=== PATIENT | female | born 1940 | race Caucasian/White ===

== ENCOUNTER 2016-06-04 17:51 | Emergency (ER) | payer OTHER ==
[2016-06-04 19:22] LABS: % IMMATURE GRANULYOCYTES 0.2 % (0.0-1.1); ABSOLUTE IMMATURE GRANULOCYTES 0.04 10^3/uL (0.00-0.10); ABSOLUTE NRBC COUNT 0.03 10^3/uL (0-0.01); ADD DIFF? NO; ADD MORPH? NO; ADD SCAN? YES; ATYPICAL LYMPHOCYTE FLAG 0 (0-99); FRAGMENT RBC FLAG 0 (0-99); HEMATOCRIT 44.4 % (38.0-47.0); LEFT SHIFT FLG 0 (0-99); LIPEMIA HEMOLYSIS FLAG 90 (0-99); MEAN CELL HEMOGLOBIN 31.7 pg (27.9-34.1); MEAN CELL HEMOGLOBIN CONCENTR. 33.8 g/dL (32.4-36.7); MEAN CELL VOLUME 93.9 fL (81.5-99.8); MEAN PLATELET VOLUME 10.1 fL (8.7-11.7); NRBC-AUTO% 0.1 % (0.0-0.2); PLATELET CLUMPS FLAG 10 (0-99); PLATELET COUNT 141 10^3/uL (150-400); RED BLOOD CELL COUNT 4.73 10^6/uL (4.18-5.33); RED CELL DISTRIBUTION WIDTH 12.2 % (11.5-15.2)
[2016-06-04 19:28] LABS: ANION GAP 10 mEq/L (8-16); CALCIUM 9.3 mg/dL (8.5-10.4); CARBON DIOXIDE 29 mEq/l (22-31); CHLORIDE 103 mEq/L (97-110); CREATININE 0.7 mg/dL (0.6-1.0); ETHANOL SERUM < 10 mg/dL (0-10); GLOMERULAR FILTRATION RATE > 60; GLUCOSE 92 mg/dL (70-100); POTASSIUM 3.6 mEq/L (3.5-5.2); SODIUM 142 mEq/L (134-144)
[2016-06-04 19:49] LABS: SCAN NEGATIVE
--- NOTE | 2016-06-04 21:56 | EDPHY ---
H & P Stated Complaint: Psych eval HPI/ROS: Chief complaint: Brought to the hospital by police for a psychiatric evaluation History of present illness: This is a 75-year-old female who presents to the emergency department with police for a psychiatric evaluation. Apparently patient was at home today and got into a fight with her . She is concerned that her is having an affair. This is apparently an ongoing issue of tension between them. On my evaluation patient states she is feeling depressed and rather despondent about the situation. However, she denies suicidal ideation. She denies homicidal ideation. No current illness or injury. Review of systems: A 10 point review of systems was obtained and other than described above was negative - Personal History Current Tetanus/Diphtheria Vaccine: Yes Current Tetanus Diphtheria and Acellular Pertussis (TDAP): Yes - Medical/Surgical History Hx Asthma: No Hx Chronic Respiratory Disease: No Hx Diabetes: No Hx Cardiac Disease: No Hx Renal Disease: No Hx Cirrhosis: No Hx Alcoholism: No Hx HIV/AIDS: No Hx Splenectomy or Spleen Trauma: No Other PMH: LEUKEMIA, Alzheimers - Social History Smoking Status: Never smoked - Physical Exam Exam: General Appearance: Alert, nontoxic. Eyes: Pupils equal and round no pallor or injection. ENT, Mouth: Mucous membranes moist. Respiratory: There are no retractions, lungs are clear to auscultation. Cardiovascular: Regular rate and rhythm. Gastrointestinal: Abdomen is soft and non tender, no masses, bowel sounds normal. Neurological: Alert and oriented. Strength and sensation intact and symmetrical. Skin: Warm and dry, no rashes. Musculoskeletal: Neck is supple non tender. Extremities are symmetrical, full range of motion. Psychiatric: Patient is oriented X 3, there is no agitation. Constitutional: Initial Vital Signs Temperature (C) 36.5 C 06/04/16 17:57 Heart Rate 78 06/04/16 17:57 Respiratory Rate 18 06/04/16 17:57 Blood Pressure 146/88 H 06/04/16 17:57 O2 Sat (%) 97 06/04/16 17:57 O2 Delivery Mode Room Air Allergies/Adverse Reactions: acetaminophen [From Percocet] Allergy (Unknown, Verified 01/01/11 14:42) erythromycin base [Erythromycin Base] Allergy (Unknown, Verified 01/01/11 14:42) oxycodone HCl [From Percocet] Allergy (Unknown, Verified 01/01/11 14:42) Home Medications: Medication Instructions Recorded Rosuvastatin Calcium [Crestor] 40 mg PO HS 01/01/11 Aricept 06/04/16 Citalopram 06/04/16 Medical Decision Making ED Course/Re-evaluation: Patient discussed with my secondary supervising physician Dr. Giovani Helms. Patient is brought to the emergency department by police after getting into a fight with her . Patient is feeling very depressed. Patient was medically evaluated. I have a suspicion for a urinary tract infection. She does have a significant leukocytosis but appears to have a known history of leukemia. No other significant findings noted. I have requested a psychiatric evaluation but they have declined as they feel patient does not meet requirements for a emergent psychiatric evaluation as she is not suicidal or homicidal or gravely disabled. On re-evaluation patient is feeling well. She has calmed down and not upset. Her daughter is at bedside. They are comfortable going home. Patient will be discharged home in the care of her daughter will stay [facility] her [facility]. I have asked that they follow up with her primary care doctor on Tuesday for continued evaluation and care. They are comfortable with this plan. They are discharged. Patient did not receive a prescription for an antibiotic for a urinary tract infection at discharge. The patient was called and a prescription was called into the pharmacy by the charge nurse. - Data Points Laboratory Results: Laboratory Results 06/04/16 18:15 06/04/16 18:15 Microbiology Results: MICROBIOLOGY 06/04/16 23:05 Urine,Clean Catch Urine Culture - Preliminary Escherichia Coli Departure - Departure Disposition: Home, Routine, Self-Care Clinical Impression: Dementia Qualifiers: Qualifier Code: (G30.8) Other Alzheimer's disease Condition: Good Instructions: Dementia (ED), Depression (ED) Additional Instructions: Please follow up with your primary care doctor on Tuesday for recheck without fail If symptoms worsen or new symptoms develop return to the emergency department for recheck Referrals: Edwina Santiago MD [Primary Care Provider] - As per Instructions
[2016-06-04 22:48] VITALS: BP 113/70; PULSE 72; RESP 16; TEMP 98.2; O2SAT 96
[2016-06-04 22:58] LABS: COLOR YELLOW; LEUKOCYTE ESTERASE,URINE 2+ (NEGATIVE); NITRITE,URINE NEGATIVE (NEGATIVE)
[2016-06-04 23:05] LABS: WBC,URINE 15-25 /hpf (0-3)
== END 2016-06-04 22:48 | disposition home or self-care (01) ==
DX: G30.8 Other Alzheimer's disease (principal)
CPT/HCPCS: G0477; G0480

== ENCOUNTER 2016-12-07 12:09 | Emergency (ER) | payer OTHER ==
[2016-12-07 13:20] LABS: % IMMATURE GRANULYOCYTES 0.2 % (0.0-1.1); ABSOLUTE IMMATURE GRANULOCYTES 0.04 10^3/uL (0.00-0.10); ADD DIFF? NO; ADD MORPH? NO; ADD SCAN? YES; ATYPICAL LYMPHOCYTE FLAG 0 (0-99); FRAGMENT RBC FLAG 0 (0-99); HEMATOCRIT 44.3 % (38.0-47.0); HEMOGLOBIN 15.3 g/dL (12.6-16.3); LEFT SHIFT FLG 0 (0-99); LIPEMIA HEMOLYSIS FLAG 90 (0-99); MEAN CELL HEMOGLOBIN 31.9 pg (27.9-34.1); MEAN CELL HEMOGLOBIN CONCENTR. 34.5 g/dL (32.4-36.7); MEAN CELL VOLUME 92.3 fL (81.5-99.8); MEAN PLATELET VOLUME 10.1 fL (8.7-11.7); PLATELET CLUMPS FLAG 20 (0-99); PLATELET COUNT 154 10^3/uL (150-400); RED CELL DISTRIBUTION WIDTH 12.6 % (11.5-15.2)
[2016-12-07 13:32] LABS: ANION GAP 14 mEq/L (8-16); CALCIUM 9.9 mg/dL (8.5-10.4); CARBON DIOXIDE 22 mEq/l (22-31); CHLORIDE 109 mEq/L (97-110); CREATININE 0.8 mg/dL (0.6-1.0); ETHANOL SERUM < 10 mg/dL (0-10); GLOMERULAR FILTRATION RATE > 60; GLUCOSE 115 mg/dL (70-100); SODIUM 145 mEq/L (134-144)
[2016-12-07 14:11] LABS: SCAN POSITIVE
[2016-12-07 14:18] LABS: PLATELET ESTIMATE DECREASED (ADEQ)
[2016-12-07 16:32] LABS: COLOR YELLOW; LEUKOCYTE ESTERASE,URINE NEGATIVE (NEGATIVE); MUCUS TRACE /lpf (NONE-1+); NITRITE,URINE NEGATIVE (NEGATIVE)
--- NOTE | 2016-12-07 16:59 | EDPHY ---
H & P Time Seen by Provider: 12/07/16 12:42 HPI/ROS: CHIEF COMPLAINT: M1 hold HISTORY OF PRESENT ILLNESS: 75-year-old female presents to the emergency department on M1 hold. The patient states that she got into an argument with her and was accusing him of having an affair since last January. She apparently threatened to kill him and 1 of her neighbors possibly called the police. The patient states she is not suicidal. She does not feel homicidal. She denies any physical complaints at this time. She states that she was here in July with very similar symptoms. She does have a history of dementia and is prescribed Aricept and they also were to start a new psychiatric medication on the patient yesterday although she was very apprehensive about starting this medication. REVIEW OF SYSTEMS: Constitutional: No fever, no chills. Eyes: No double or blurry vision. ENT: No sore throat. Respiratory: No cough, no shortness of breath. Cardiac: No chest pain. Gastrointestinal: No abdominal pain, vomiting or diarrhea. Genitourinary: No dysuria. Musculoskeletal: No neck or back pain. Skin: No rashes. Neurological: No headache. Past Medical/Surgical History: Alzheimer's dementia, hyperlipidemia, chronic lymphocytic leukemia Social History: Smoking Status: Never smoked Physical Exam: General Appearance: Alert, no distress. Afebrile. No apparent distress. Friend at bedside. Eyes: Pupils equal and round. Extraocular motions are all intact. ENT: Mouth: Mucous membranes moist. Respiratory: No wheezing, rhonchi, or rales, lungs are clear to auscultation. Cardiovascular: Regular rate and rhythm. Gastrointestinal: Abdomen is soft and nontender, no masses, no rebound or guarding, bowel sounds normal. Neurological: Alert and oriented x 3, cranial nerves II through XII grossly intact Skin: Warm and dry, no rashes. Musculoskeletal: Nontender to palpate along the cervical, thoracic or lumbar spine. Neck is supple. Extremities: Full range of motion and no peripheral edema. Psychiatric: Patient is oriented X 3, there is no agitation. Constitutional: Initial Vital Signs Temperature (C) 37 C 12/07/16 12:29 Heart Rate 87 12/07/16 12:29 Respiratory Rate 17 12/07/16 12:29 Blood Pressure 112/59 L 12/07/16 12:29 O2 Sat (%) 95 12/07/16 12:29 O2 Delivery Mode Room Air Allergies/Adverse Reactions: acetaminophen [From Percocet] Allergy (Unknown, Verified 12/07/16 12:29) erythromycin base [Erythromycin Base] Allergy (Unknown, Verified 12/07/16 12:29) oxycodone HCl [From Percocet] Allergy (Unknown, Verified 12/07/16 12:29) Home Medications: Medication Instructions Recorded Rosuvastatin Calcium [Crestor] 40 mg PO HS 01/01/11 Aricept 06/04/16 Citalopram 06/04/16 Hydrocodone/APAP 5/325 12/07/16 Medical Decision Making ED Course/Re-evaluation: The patient has been medically cleared and is awaiting mental health evaluation. The spent a great deal of time talking with the nurse case management as well as the automation clerk. He had also called [facility] for possible admission to geriatric psychiatric unit. Differential Diagnosis: Altered mental status including but not limited to dementia, hypoglycemia, infectious process, electrolyte abnormality, head injury and intoxicants. Care Turn Over: Care will be turned over to Dr. Zaid Correa at 5:00 p.m. for disposition and plan. - Data Points Laboratory Results: Laboratory Results 12/07/16 12:44 12/07/16 12:44 12/07/16 12/07/16 12/07/16 16:00 12:44 12:44 WBC 22.13 10^3/uL H 10^3/uL (3.80-9.50) RBC 4.80 10^6/uL 10^6/uL (4.18-5.33) Hgb 15.3 g/dL g/dL (12.6-16.3) Hct 44.3 % % (38.0-47.0) MCV 92.3 fL fL (81.5-99.8) MCH 31.9 pg pg (27.9-34.1) MCHC 34.5 g/dL g/dL (32.4-36.7) RDW 12.6 % % (11.5-15.2) Plt Count 154 10^3/uL 10^3/uL (150-400) MPV 10.1 fL fL (8.7-11.7) Neut % (Auto) 19.4 % L % (39.3-74.2) Lymph % (Auto) 76.8 % H % (15.0-45.0) Woodward % (Auto) 2.6 % L % (4.5-13.0) Eos % (Auto) 0.7 % % (0.6-7.6) Baso % (Auto) 0.3 % % (0.3-1.7) Nucleat RBC Rel Count 0.0 % % (0.0-0.2) Absolute Neuts (auto) 4.30 10^3/uL 10^3/uL (1.70-6.50) Absolute Lymphs (auto) 16.99 10^3/uL H 10^3/uL (1.00-3.00) Absolute Monos (auto) 0.58 10^3/uL 10^3/uL (0.30-0.80) Absolute Eos (auto) 0.16 10^3/uL 10^3/uL (0.03-0.40) Absolute Basos (auto) 0.06 10^3/uL 10^3/uL (0.02-0.10) Absolute Nucleated RBC 0.00 10^3/uL 10^3/uL (0-0.01) Immature Gran % 0.2 % % (0.0-1.1) Seg Neutrophils % 15 % % Lymphocytes % 82 % % Monocytes % 1 % % Eosinophils % 2 % % Immature Gran # 0.04 10^3/uL 10^3/uL (0.00-0.10) Absolute Seg Neuts 3.32 10^/uL 10^/uL (1.70-6.50) Absolute Lymphocytes 18.15 10^3/uL H 10^3/uL (1.00-3.00) Absolute Monocytes 0.22 10^3/uL L 10^3/uL (0.30-0.80) Absolute Eosinophils 0.44 10^3/uL H 10^3/uL (0.03-0.40) Atypical Lymphocytes 1+ H Platelet Estimate DECREASED L (ADEQ) Smear Review By Pending Sodium 145 mEq/L H mEq/L (134-144) Potassium 4.0 mEq/L mEq/L (3.5-5.2) Chloride 109 mEq/L mEq/L (97-110) Carbon Dioxide 22 mEq/l mEq/l (22-31) Anion Gap 14 mEq/L mEq/L (8-16) BUN 18 mg/dL mg/dL (7-23) Creatinine 0.8 mg/dL mg/dL (0.6-1.0) Estimated GFR > 60 Glucose 115 mg/dL H mg/dL (70-100) Calcium 9.9 mg/dL mg/dL (8.5-10.4) TSH 1.490 uIU/mL uIU/mL (0.465-4.680) Urine Color YELLOW Urine Appearance HAZY Urine pH 6.0 (5.0-7.5) Ur Specific Hurley 1.016 (1.002-1.030) Urine Protein NEGATIVE (NEGATIVE) Urine Ketones NEGATIVE (NEGATIVE) Urine Blood NEGATIVE (NEGATIVE) Urine Nitrate NEGATIVE (NEGATIVE) Urine Bilirubin NEGATIVE (NEGATIVE) Urine Urobilinogen 2.0 EU H EU (0.2-1.0) Ur Leukocyte Esterase NEGATIVE (NEGATIVE) Urine RBC 1-3 /hpf /hpf (0-3) Urine WBC 1-3 /hpf /hpf (0-3) Ur Epithelial Cells TRACE /lpf /lpf (NONE-1+) Urine Mucus TRACE /lpf /lpf (NONE-1+) Urine Glucose NEGATIVE (NEGATIVE) Urine Opiates Screen NON-NEGATIVE H (NEGATIVE) Urine Barbiturates NEGATIVE (NEGATIVE) Ur Phencyclidine Scrn NEGATIVE (NEGATIVE) Ur Amphetamine Screen NEGATIVE (NEGATIVE) U Benzodiazepines Scrn NEGATIVE (NEGATIVE) Urine Cocaine Screen NEGATIVE (NEGATIVE) U Marijuana (THC) Screen NEGATIVE (NEGATIVE) Ethyl Alcohol < 10 mg/dL mg/dL (0-10) Departure - Departure Disposition: Other Psych, Not Honor Clinical Impression: Homicidal ideation Alzheimer's dementia Qualifiers: Alzheimer's disease onset: unspecified onset Dementia behavioral disturbance: with behavioral disturbance Qualified Code(s): G30.8 - Other Alzheimer's disease ; F02.81 - Dementia in other diseases classified elsewhere with behavioral disturbance Condition: Good Referrals: Patient,NotPresent [Primary Care Provider] - As per Instructions
[2016-12-07 20:09] VITALS: RESP 16; TEMP 98.1
[2016-12-07] MEDS ORDERED: IBUPROFEN 200 MG TAB PO ONE (22:29)
[2016-12-07] MEDS ORDERED: LORazepam 1 MG TAB PO ONE (23:00)
[2016-12-07] MEDS ORDERED: OLANZapine 10 MG/2 ML VIAL IM ONE ×2 (23:00→23:42)
[2016-12-07] MEDS ORDERED: LORazepam 1 MG TAB ONE (23:29)
[2016-12-08 03:06] VITALS: BP 107/62; PULSE 63; O2SAT 92
== END 2016-12-08 03:30 ==
DX: G30.8 Other Alzheimer's disease (principal); F02.81 Dementia in other diseases classified elsewhere, unspecified severity, with behavioral disturbance; R45.850 Homicidal ideations
CPT/HCPCS: 80305; G0480

== ENCOUNTER 2017-08-17 20:47 | Emergency (ER) | payer OTHER ==
[2017-08-17] MEDS ORDERED: LET GEL TOPICAL 1 EA SYR TP ONE ×2 (21:25→21:26)
--- NOTE | 2017-08-17 21:28 | EDPHY ---
H & P Stated Complaint: FALL, LACERATION TO LEFT FOREHEAD NO LOC Time Seen by Provider: 08/17/17 21:19 HPI/ROS: HPI CHIEF COMPLAINT: Left forehead laceration. HISTORY OF PRESENT ILLNESS: Patient very pleasant 76-year-old female, denies having any headache nausea vomiting. She bent over to place with a cat and hit her head on the window sill. She sustained a left-sided forehead vertical laceration 4 cm in vertical orientation. She denies headache. Denies nausea denies vomiting. Denies dizziness. Denies focal weakness numbness or tingling. Denies chest pain or shortness of breath. She did not pass out. Tetanus shot is up-to-date. Past Medical History: Depression, mood disorder, dementia Past Surgical History: Denies recent surgery Social History: Denies drugs alcohol tobacco. Resides locally. Family History: Noncontributory ROS REVIEW OF SYSTEMS: A comprehensive 10 point review of systems is otherwise negative aside from elements mentioned in the history of present illness. Exam Constitutional appears well nontoxic no acute distress, triage nursing summary reviewed, vital signs reviewed, awake/alert. Eyes normal conjunctivae and sclera, EOMI, PERRLA. HENT head/neck: Left forehead laceration: 4 cm vertically oriented left forehead. No foreign bodies visualized. Otherwise head neck exam is atraumatic. moist mucus membranes, no epistaxis, neck supple/ no meningismus, no raccoon eyes. Respiratory clear to auscultation bilaterally, normal breath sounds, no respiratory distress, no wheezing. Cardiovascular rate normal, regular rhythm, no murmur, no edema, distal pulses normal. Gastrointestinal soft, non-tender, no rebound, no guarding, normal bowel sounds, no distension, no pulsatile mass. Genitourinary no CVA tenderness. Musculoskeletal no midline vertebral tenderness, full range of motion, no calf swelling, no tenderness of extremities, no meningismus, good pulses, neurovascularly intact. Skin pink, warm, & dry, no rash, skin atraumatic. Neurologic awake, alert and oriented x 3, AAOx3, moves all 4 extremities equally, motor intact, sensory intact, CN II-XII intact, normal cerebellar, normal vision, normal speech. Psychiatric normal mood/affect. Heme/Lymph/Immune no lymphadenopathy. Differential Diagnosis: Includes but is not limited to in a particular order left forehead laceration, left forehead hematoma, doubt intracranial bleed, doubt skull fracture, doubt subdural or epidural given no headache, not vomiting acting appropriately. Medical Decision Making: Plan for this patient will copiously irrigating clean her wound. Repair her laceration. I have discussed with her as well as her bedside return precautions about head injury. If she develops headache, vomiting she needs return emergency room. She declined CT imaging at this time. Re-evaluation: Laceration Repair Procedure: Verbal Consent was obtained, Under sterile conditions, The patient had lidocaine with epinephrine used approximately 4ccs to local anesthetize the Left Forehead 4CM Laceration. The wound was copiously irrigated with sterile fluid, the wound was explored for foreign bodies there were none visualized, the wound was explored with a sterile glove to the base. There are no deep structures involved, including no arterial injury. TWO 6.O PROLENE interrupted Sutures were placed in this patient's laceration. She had good close approximation of the wound edges. She Tolerated this well. 2200: Patient understands have sutures removed in 7 days. Return precautions discussed with her. She understands return emergency if develops headache, vomiting questions concerns about a laceration. at bedside updated. Source: Patient - Personal History Current Tetanus/Diphtheria Vaccine: Yes Current Tetanus Diphtheria and Acellular Pertussis (TDAP): Yes - Medical/Surgical History Hx Asthma: No Hx Chronic Respiratory Disease: No Hx Diabetes: No Hx Cardiac Disease: No Hx Renal Disease: No Hx Cirrhosis: No Hx Alcoholism: No Hx HIV/AIDS: No Hx Splenectomy or Spleen Trauma: No Other PMH: cchronic lymphocytic LEUKEMIA, Alzheimers, hyperlipidemia - Social History Smoking Status: Never smoked Constitutional: Initial Vital Signs Temperature (C) 36.5 C 08/17/17 20:48 Heart Rate 63 08/17/17 20:48 Respiratory Rate 18 08/17/17 20:48 Blood Pressure 122/64 H 08/17/17 20:48 O2 Sat (%) 96 08/17/17 20:48 O2 Delivery Mode Room Air Allergies/Adverse Reactions: acetaminophen [From Percocet] Allergy (Unknown, Verified 08/17/17 20:51) erythromycin base [Erythromycin Base] Allergy (Unknown, Verified 08/17/17 20:51) oxycodone HCl [From Percocet] Allergy (Unknown, Verified 08/17/17 20:51) Home Medications: Medication Instructions Recorded Rosuvastatin Calcium [Crestor] 40 mg PO HS 01/01/11 Aricept 06/04/16 Citalopram 06/04/16 ARIPiprazole [Abilify 2 mg (*)] 2.5 mg PO DAILY 08/17/17 B-9 08/17/17 QUEtiapine FUMARATE [Seroquel 25 25 mg PO DAILY 08/17/17 mg (*)] Medical Decision Making - Data Points Medications Given: Discontinued Medications Tetracaine/Epinephrine/Lidocaine (Let Gel Topical) 1 ea TP EDNOW ONE Stop: 08/17/17 21:26 Last Admin: 08/17/17 21:27 Dose: 1 ea Departure - Departure Disposition: Home, Routine, Self-Care Clinical Impression: Laceration Forehead laceration Qualifiers: Encounter type: initial encounter Qualified Code(s): S01.81XA - Laceration without foreign body of other part of head, initial encounter Condition: Good Instructions: Laceration (ED), Care For Your Stitches (ED) Additional Instructions: 1. You need to have your sutures removed in 7 days. 2. Return emergency room if you have any further questions concerns or worsening symptoms includes headache, vomiting or not acting correctly. Referrals: Cindy Holland MD [Primary Care Provider] - As per Instructions
[2017-08-24 13:03] VITALS: BP 124/67; PULSE 81; RESP 18; TEMP 98.2; O2SAT 93
== END 2017-08-17 22:15 | disposition home or self-care (01) ==
PROC: 0HQ1XZZ Repair Face Skin, External Approach (ICD-10-PCS; principal; 2017-08-17)
DX: S01.81XA Laceration without foreign body of other part of head, initial encounter (principal); G30.9 Alzheimer's disease, unspecified; W18.09XA Striking against other object with subsequent fall, initial encounter

== ENCOUNTER → 2017-10-25 | Outpatient (CLI) | payer OTHER | LOC: FIMAGING 16:02 | PROVIDERS: ATTEND Family Medicine Geriatric Medicine | DX: Z12.31 Encounter for screening mammogram for malignant neoplasm of breast (principal) ==